=== PATIENT | male | born 1970 | race Caucasian/White ===

== ENCOUNTER 2019-05-26 16:10 | Emergency (ER) | payer MEDICAID | END 2019-05-26 18:21 | disposition home or self-care (01) | LOC: E/R 16:10 | DX: K40.90 Unilateral inguinal hernia, without obstruction or gangrene, not specified as recurrent (principal); R40.2142 Coma scale, eyes open, spontaneous, at arrival to emergency department; R40.2362 Coma scale, best motor response, obeys commands, at arrival to emergency department; R40.2252 Coma scale, best verbal response, oriented, at arrival to emergency department | CPT/HCPCS: 99282; Z7502 ==

== ENCOUNTER 2019-06-15 10:52 | Emergency (ER) | payer MEDICAID ==
[2019-06-15] MEDS: KETOROLAC 30 MG INJ IM (11:12)
== END 2019-06-15 11:31 | disposition home or self-care (01) ==
LOC: FTE 11:31
DX: M54.41 Lumbago with sciatica, right side (principal)
CPT/HCPCS: 96372; 99284-25